=== PATIENT | male | born 1980 | race Hispanic/Latino ===

== ENCOUNTER 2019-05-12 23:59 | Emergency (ER) | payer SELFPAY ==
[2019-05-13] MEDS ORDERED: KETOROLAC TROMETHAMINE 60 MG/2 ML VIAL ONE (00:50)
== END 2019-05-13 01:24 | disposition home or self-care (01) ==
LOC: EDH 23:59
DX: M10.9 Gout, unspecified (principal)
CPT/HCPCS: 96372; 99283; J1885

== ENCOUNTER 2020-07-29 10:17 | Emergency (ER) | payer SELFPAY ==
[2020-07-29 10:49] LABS: BASOPHILS % (AUTO) 0.9 % (0.0-5.0); EOSINOPHILS % (AUTO) 4.6 % (0.0-8.0); HEMATOCRIT 46.2 % (42-54); LYMPHOCYTES % (AUTO) 36.4 % (21.0-51.0); MEAN CORPUSCULAR HGB CONC 31.6 g/dL (32.0-36.0); MEAN CORPUSCULAR VOLUME 82.4 fL (79-99); MONOCYTES % (AUTO) 6.2 % (3.0-13.0); NEUTROPHILS % (AUTO) 51.7 % (40.0-77.0); PLATELET COUNT (AUTO) 351 K/uL (130-400); RED BLOOD CELL COUNT(AUTO) 5.61 MIL/uL (4.50-6.20); RED CELL DISTRIBUTION WIDTH 14.6 % (11.0-15.5); WHITE BLOOD COUNT (AUTO) 9.6 K/uL (4.8-10.8)
[2020-07-29 11:01] LABS: APPEARANCE,URINE Clear (CLEAR); BILIRUBIN,URINE Negative (NEGATIVE); COLOR,URINE Yellow (YELLOW); GLUCOSE, URINE (UA) Negative (NEGATIVE); KETONES,URINE Negative (NEGATIVE); LEUKOCYTE ESTERASE ,URINE Negative (NEGATIVE); NITRATE,URINE Negative (NEGATIVE); OCCULT BLOOD,URINE Negative (NEGATIVE); PH,URINE 5.5 (5.0-8.0); PROTEIN,URINE Negative (NEGATIVE); UROBILINOGEN,URINE 0.2 mg/dL (0.2-1.0)
[2020-07-29 11:15] LABS: CREATININE 1.1 mg/dL (0.5-1.5); POTASSIUM 4.3 mmol/L (3.5-5.1)
[2020-07-29 11:19] LABS: ALBUMIN 4.1 g/dL (3.5-5.0); BILIRUBIN,TOTAL 0.4 mg/dL (0.2-1.0); TOTAL PROTEIN, SERUM 8.8 g/dL (6.0-8.3)
[2020-07-29 14:24] LABS: AMPHET/METH SCREEN,URINE NEGATIVE (NEGATIVE); BARBITURATE SCREEN, URINE NEGATIVE (NEGATIVE); BENZODIAZEPINES SCREEN,URINE NEGATIVE (NEGATIVE); CANNABINOID SCREEN,URINE NEGATIVE (NEGATIVE); COCAINE SCREEN,URINE NEGATIVE (NEGATIVE); OPIATE SCREEN,URINE NEGATIVE (NEGATIVE); PHENCYCLIDINE SCREEN,URINE NEGATIVE (NEGATIVE)
== END 2020-07-29 13:06 | disposition home or self-care (01) ==
LOC: EDH 10:17
DX: R10.32 Left lower quadrant pain (principal)
CPT/HCPCS: 36415; 74176; 80053; 80305; 81003; 83690; 85025

== ENCOUNTER 2021-04-12 08:45 | Emergency (ER) | payer SELFPAY ==
[~2021-04-12] VITALS: Ht 167.6 cm; Wt 99.8 kg
[2021-04-12 09:40] LABS: BASOPHILS % (AUTO) 0.8 % (0.0-5.0); EOSINOPHILS % (AUTO) 1.8 % (0.0-8.0); HEMATOCRIT 41.2 % (42-54); LYMPHOCYTES % (AUTO) 16.4 % (21.0-51.0); MEAN CORPUSCULAR HEMOGLOBIN 26.7 pg (27.0-33.0); MEAN CORPUSCULAR HGB CONC 32.8 g/dL (32.0-36.0); MEAN CORPUSCULAR VOLUME 81.4 fL (79-99); MONOCYTES % (AUTO) 5.6 % (3.0-13.0); NEUTROPHILS % (AUTO) 74.9 % (40.0-77.0); PLATELET COUNT (AUTO) 380 K/uL (130-400); RED BLOOD CELL COUNT(AUTO) 5.06 MIL/uL (4.50-6.20); RED CELL DISTRIBUTION WIDTH 14.1 % (11.0-15.5); WHITE BLOOD COUNT (AUTO) 13.2 K/uL (4.8-10.8)
[2021-04-12] MEDS ORDERED: MORPHINE 4 MG SYG IV SCH (10:00)
[2021-04-12 10:03] LABS: CREATININE 1.1 mg/dL (0.5-1.5); POTASSIUM 4.2 mmol/L (3.5-5.1)
[2021-04-12 10:07] LABS: ALBUMIN 3.5 g/dL (3.5-5.0); BILIRUBIN,TOTAL 0.5 mg/dL (0.2-1.0); TOTAL PROTEIN, SERUM 8.6 g/dL (6.0-8.3)
[2021-04-12] MEDS ORDERED: KETOROLAC 30MG VIAL (30MG/ML) ONE (10:15)
[2021-04-12 10:20] VITALS: BP 127/77
[2021-04-12] MEDS ORDERED: KETOROLAC 30MG VIAL (30MG/ML) IV SCH (10:30)
[2021-04-12 10:34] LABS: APPEARANCE,URINE Clear (CLEAR); BILIRUBIN,URINE Negative (NEGATIVE); COLOR,URINE Yellow (YELLOW); GLUCOSE, URINE (UA) Negative (NEGATIVE); KETONES,URINE Negative (NEGATIVE); LEUKOCYTE ESTERASE ,URINE Negative (NEGATIVE); NITRATE,URINE Negative (NEGATIVE); OCCULT BLOOD,URINE Negative (NEGATIVE); PROTEIN,URINE Negative (NEGATIVE); UROBILINOGEN,URINE 0.2 mg/dL (0.2-1.0)
[2021-04-12 10:39] LABS: GLUCOSE,BODY FLUID 94 mg/dL (1-40)
[2021-04-12 13:17] LABS: SPECIMENTYPE,BODY FLUID SYNOVIAL
[2021-04-12 13:18] LABS: APPEARANCE BODY FLUID CLOUDY (CLEAR); COLOR,BODY FLUID YELLOW (LT YELLOW); TOTAL VOLUME,BODY FLUID 66 mL
[2021-04-12 13:22] LABS: BODY FLUID WBC 12720 /cu. mm.
[2021-04-12 13:23] LABS: BODY FLUID RBC 0 /cu. mm.
[2021-04-12 13:25] LABS: BF LYMPHOCYTE 7 %; BF MONOCYTE 5 %
[2021-04-12] MEDS ORDERED: NAPR-1180 PO (14:40)
[2021-04-12] MEDS ORDERED: PRED20TA3 PO (14:40)
[2021-04-12 17:01] LABS: CRYSTALS, SYNOVIAL FLUID Mono Urates - Rare
== END 2021-04-12 14:49 | disposition home or self-care (01) ==
LOC: EDH 08:45
DX: M25.462 Effusion, left knee (principal); R30.0 Dysuria; M13.0 Polyarthritis, unspecified; Z79.1 Long term (current) use of non-steroidal anti-inflammatories (NSAID)
CPT/HCPCS: 20610; 36415; 76770; 80053; 81003; 82945; 84157; 84550; 85025; 87071; 87205; 89051; 89060; 96374; 99284; J1885; J2270

== ENCOUNTER 2021-07-08 01:04 | Emergency (ER) | payer SELFPAY ==
[~2021-07-08] VITALS: Ht 152.4 cm; Wt 104.3 kg
[~2021-07-08 01:04] MED LIST: NAPR-1180 PO; PRED20TA3 PO
[2021-07-08 01:07] VITALS: BP 136/92
[2021-07-08] MEDS ORDERED: ACET-66 PO (01:59)
[2021-07-08] MEDS ORDERED: LORA10TA7 PO (01:59)
[2021-07-08] MEDS ORDERED: FLUT16H NASAL (01:59)
[2021-07-08] MEDS ORDERED: LORATADINE 10 MG TABLET ONE (02:13)
== END 2021-07-08 02:19 | disposition home or self-care (01) ==
LOC: EDH 01:04
DX: B34.9 Viral infection, unspecified (principal); Z79.1 Long term (current) use of non-steroidal anti-inflammatories (NSAID); Z79.52 Long term (current) use of systemic steroids

== ENCOUNTER 2021-10-09 09:56 | Emergency (ER) | payer OTHER ==
[~2021-10-09] VITALS: Ht 165.1 cm; Wt 102.1 kg
[~2021-10-09 09:56] MED LIST changes: +ACET-66 PO; +FLUT16H NASAL; +LORA10TA7 PO
[2021-10-09] MEDS ORDERED: ACETAMINOPHEN 500 MG TABLET PO SCH (10:00)
[2021-10-09] MEDS ORDERED: SOLU-MEDROL 125MG VIAL ONE (10:26)
[2021-10-09] MEDS ORDERED: KETOROLAC 60 MG VIAL (30MG/ML) IM ONE (10:26)
[2021-10-09] MEDS ORDERED: KETOROLAC 60 MG VIAL (30MG/ML) IM SCH (11:00)
[2021-10-09] MEDS ORDERED: SOLU-MEDROL 125MG VIAL IM SCH (11:00)
[2021-10-09] MEDS ORDERED: NAPR-1196 PO (11:46)
[2021-10-09 12:12] VITALS: BP 108/78
== END 2021-10-09 12:42 | disposition home or self-care (01) ==
LOC: EDH 09:56
DX: S86.911A Strain of unspecified muscle(s) and tendon(s) at lower leg level, right leg, initial encounter (principal); Z79.1 Long term (current) use of non-steroidal anti-inflammatories (NSAID); Z79.52 Long term (current) use of systemic steroids; X58.XXXA Exposure to other specified factors, initial encounter; Y93.89 Activity, other specified; Y92.89 Other specified places as the place of occurrence of the external cause; Y99.8 Other external cause status
CPT/HCPCS: 73562; 96372 ×2; 99284; J1885; J2930

== ENCOUNTER 2022-09-05 10:39 | Emergency (ER) | payer OTHER ==
[~2022-09-05] VITALS: Ht 167.6 cm; Wt 117.9 kg
[~2022-09-05 10:39] MED LIST changes: +NAPR-1196 PO
[2022-09-05 10:40] VITALS: BP 137/85
[2022-09-05] MEDS ORDERED: KETOROLAC 15MG/ML VIAL (15MG/ML) IM ONE (12:00)
[2022-09-05] MEDS ORDERED: IBUP-2070 PO (12:54)
[2022-09-05] MEDS ORDERED: ALLO100T PO (12:54)
== END 2022-09-05 13:31 | disposition home or self-care (01) ==
LOC: EDH 10:39
DX: M10.9 Gout, unspecified (principal); M25.571 Pain in right ankle and joints of right foot; Z79.899 Other long term (current) drug therapy
CPT/HCPCS: 99284; 84550; 36415; 73610; 96372; J1885

== ENCOUNTER 2024-01-30 00:12 | Emergency (ER) | payer SELFPAY ==
[~2024-01-30] VITALS: Ht 165.1 cm; Wt 99.8 kg
[~2024-01-30 00:12] MED LIST changes: +ALLO100T PO; +IBUP-2070 PO
[2024-01-30] MEDS ORDERED: KETOROLAC 60 MG VIAL (30MG/ML) IM ONE (01:00)
[2024-01-30] MEDS: HYDROCODONE/ACETAMINOPHEN 5/325 MG TAB PO ONE (01:18)
[2024-01-30] MEDS: MORPHINE 4 MG SYG IM ONE (04:13)
[2024-01-30 04:30] VITALS: BP 139/73; PULSE 66; RESP 17; O2SAT 99
== END 2024-01-30 04:29 | disposition home or self-care (01) ==
LOC: EDH 00:12
DX: M17.12 Unilateral primary osteoarthritis, left knee (principal); Z79.899 Other long term (current) drug therapy
CPT/HCPCS: 99285; 73700; 93971; 84550; 36415; 96372; J2270

== ENCOUNTER 2024-05-23 23:21 | Emergency (ER) | payer SELFPAY ==
[~2024-05-23] VITALS: Ht 162.6 cm; Wt 104.3 kg
[2024-05-23] MEDS ORDERED: AMOX1TAB16 PO (23:50)
[2024-05-23] MEDS ORDERED: KETO10TA2 PO (23:50)
--- NOTE | 2024-05-23 23:50 | ERN ---
General Chief Complaint: Tooth Ache/Pain Stated Complaint: C/O TOOTHACHE TO LEFT UPPER SIDE Time Seen by MD: 23:24 Time Seen by Midlevel: 23:24 Source: patient History of Present Illness Initial Comments Patient is a 44-year-old male with no significant past medical history presenting to the emergency department with dental pain that has been ongoing for the last two days. Denies any fever, chills, or any other symptoms at this time. Patient took one dose of [id number] mg prior to arrival but states he no longer has any more of this medication. He has been taking Tylenol and Motrin with little to no relief. Patient already has appointment with a dentist. Allergies: Coded Allergies: No Known Allergies (Unverified Allergy, Unknown, 05/13/19) Home Meds Active Scripts Ketorolac Tromethamine (Ketorolac Tromethamine) 10 Mg Tablet, 1 TAB PO TID for pain for 5 Days, #15 TAB 0 Refills Prov:SAVAGE BRARIENTOS 05/23/24 Amoxicillin/Potassium Clav (Amox Tr-K Clv 875-125 mg Tab) 875 Mg-125 Mg Tablet, 1 EACH PO BID for 10 Days, #20 TAB 0 Refills Prov:SAVAGE BARRIENTOS 05/23/24 Ibuprofen (Ibuprofen) 600 Mg Tablet, 600 MG PO Q6H PRN for PAIN for 7 Days, #28 TAB Prov:TONIO MONSON OUTPATIENT ADMITTING CLERK 09/05/22 Allopurinol (Allopurinol) 100 Mg Tablet, 100 MG PO BID for 30 Days, #60 TAB Prov:TONIO MONSON NP 09/05/22 Naproxen (Naproxen) 250 Mg Tablet, 500 MG PO BID for 7 Days, #14 TAB Prov:NATHANIEL NOVAK MD 10/09/21 Fluticasone Propionate (Flonase Nasal [place]) 50 Mcg/[place], 50 MCG NASAL BID for 14 Days, #30 SPRAY Prov:NATHANIEL NOVAK MD 07/08/21 Loratadine (Loratadine) 10 Mg Tablet, 10 MG PO DAILY for 30 Days, #30 TAB Prov:NATHANIEL NOVAK MD 07/08/21 Acetaminophen (Tylenol) 500 Mg Tab, 500 MG PO Q6HPRN for 5 Days, #30 TAB Prov:NATAHNIEL NOVAK MD 07/08/21 Prednisone (Prednisone) 20 Mg Tablet, 1 TAB PO AD for 6 Days, #14 TAB 0 Refills TAKE 1 TAB BY MOUTH THREE TIMES PER DAY X3 DAYS, THEN TAKE 1 TAB BY MOUTH TWICE A DAY X2 DAYS, THEN TAKE 1 TAB BY MOUTH ONCE A DAY X1 DAY. Prov:MINH RETANA MD 04/12/21 Naproxen (Naprosyn) 500 Mg Tablet, 500 MG PO BIDPC for 10 Days, #20 TAB 0 Refills Prov:MINH RETANA MD 04/12/21 Past Medical History Past Medical History: No Pertinent History Medical History Other: GOUT Past Surgical History: None Family History Family History: Negative Social History Social History: Other ROS Dictation CONSTITUTIONAL: Negative except for HPI HEAD/FACE: Negative except for HPI EENT: Negative except for HPI RESPIRATORY: Negative except for HPI GASTROINTESTINAL/ABDOMINAL: Negative except for HPI GENITOURINARY: Negative except for HPI MUSCULOSKELETAL: Negative except for HPI INTEGUMENTARY: Negative except for HPI NEUROLOGICAL/PSYCH: Negative except for HPI HEMATOLOGIC/LYMPHATIC: Negative except for HPI All Systems Negative, Except as noted above. 13 point review of systems assessed and all negative except for above. Physical Exam Physical Exam Dictation PHYSICAL EXAM: GENERAL: alert,, awake oriented x 3 HEENT: EOMI, Sclera non icteric, moist mucosa, gingival erythema to the left upper molar, dental caries throughout, poor dentition NECK: Supple, no JVD, trachea midline LUNGS: Clear breath sounds bilaterally. No wheezes HEART: Regular rate and rhythm. Normal S1 and S2, without murmurs ABD: Abdomen soft, nontender. Bowel sounds present EXT: No clubbing or cyanosis, NEURO: Alert and oriented to person, follows commands MDM MDM: Differential diagnosis: Dental abscess, strep, dental caries There are no social concerns with this patient. Prescription drug management Prescriptions will include: Augmentin and Toradol Medical management and examination interpretation discussions were had by me with other qualified healthcare professionals as indicated for the patient's care. ED Course Orders Procedure Category Date Status Time Hydrocodone/Apap PHA 05/24/24 In Process 10325 Tab ([employer] 10) 00:00 Ketorolac PHA 05/24/24 In Process Tromethamine 30mg/Ml 00:00 Ceftriaxone 1g Vial PHA 05/24/24 In Process (Rocephine 1g Inj) 00:00 Dexamethasone 4mg/Ml PHA 05/24/24 In Process 1ml Vial (Dexametha 00:00 Current Medications Medications (Trade) Dose Ordered Sig/Jane Route PRN Reason Start Time Stop Time Status Last Admin Dose Admin Acetaminophen/ Hydrocodone Bitart (NORco 10) 1 tab ONCE ONCE PO 05/24/24 00:00 05/24/24 00:01 Ceftriaxone Sodium (ROCEphine 1G INJ) 1 gm ONCE ONCE IM 05/24/24 00:00 05/24/24 00:01 Dexamethasone Sodium Phosphate (dexaMETHasone 4MG/ML 1ML VIAL) 10 mg ONCE ONCE IM 05/24/24 00:00 05/24/24 00:01 Ketorolac Tromethamine (toRADol) 30 mg ONCE ONCE IM 05/24/24 00:00 05/24/24 00:01 Vital Signs Date Time Temp Pulse Resp B/P (MAP) Pulse Ox O2 Delivery O2 Flow Rate FiO2 05/23/24 23:23 97.5 63 20 147/91 97 Room Air DX & DISP Disposition: Discharge Departure Impression: Primary Impression: Dental abscess Condition: Stable Scripts Ketorolac Tromethamine (Ketorolac Tromethamine) 10 Mg Tablet 1 TAB PO TID for pain for 5 Days, #15 TAB 0 Refills Prov: SAVAGE BARRIENTOS 05/23/24 Amoxicillin/Potassium Clav (Amox Tr-K Clv 875-125 mg Tab) 875 Mg-125 Mg Tablet 1 EACH PO BID for 10 Days, #20 TAB 0 Refills Prov: SAVAGE BARRIENTOS 05/23/24 Referrals: SELF,REFERRAL (PCP) I have reviewed the case, and I agree with, Diagnosis and Plan I performed the substantive portion of the visit. I have reviewed and personally made and approve the management plan that is documented in the note by myself or the ONUR. I acknowledge for responsibility for the patient's management plan. SAVAGE BARRIENTOS May 23, 2024 23:50
[2024-05-24] MEDS: ketOROlac 30MG VIAL (30MG/ML) IM ONE
[2024-05-24] MEDS: HYDROcodone/acetaMINOPHEN 10/325 MG TAB PO ONE
[2024-05-24] MEDS: dexaMETHasone SOD PHOSPHATE 4 MG/ML 1ML VIAL IM ONE
[2024-05-24] MEDS: cefTRIAXone 1G VIAL IM ONE (00:01)
[2024-05-24 00:18] VITALS: BP 142/90; PULSE 62; RESP 18; TEMP 97.8; O2SAT 99
== END 2024-05-24 00:59 | disposition home or self-care (01) ==
LOC: EDH 23:21
DX: K04.7 Periapical abscess without sinus (principal); Z79.899 Other long term (current) drug therapy
CPT/HCPCS: 99284; 96372 ×3; J1100; J0696; J1885